=== PATIENT | female | born 1945 | race Caucasian/White ===

== ENCOUNTER → 2016-07-13 | Outpatient (CLI) | payer MEDICARE, BC ==
--- NOTE | 2016-07-13 15:24 | RADRPT ---
PROCEDURE: XR Right hip and pelvis. CLINICAL INDICATION: Right hip pain. Pelvic pain. TECHNIQUE: Two views. Frontal pelvis and lateral right hip. COMPARISON: 04/01/2015. FINDINGS: There is no fracture or dislocation. The soft tissues are normal. There are moderate degenerative changes of the right hip with joint space narrowing and osteophytes, slightly worse than seen previously. The left hip is grossly normal. There is no lytic or blastic lesion. A Lippes loop IUD is present in the midline pelvis. The upper pelvis is not completely included on the image. IMPRESSION: 1. Moderate degenerative changes of the right hip, slightly worse than seen previously. 2. IUD in the midline pelvis. 3. Otherwise grossly normal appearance of the left hip and pelvis. RPTAT: QQ .Carlitos Diaz MD, Date Time Electronically viewed and signed by .Carlitos Diaz MD, on 07/13/2016 15:24 .R/
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
== END | disposition home or self-care (01) ==
LOC: HKI 14:06
DX: M25.551 Pain in right hip (principal); M16.11 Unilateral primary osteoarthritis, right hip
CPT/HCPCS: 73502; G0463